=== PATIENT | female | born 1990 ===

== ENCOUNTER 2017-08-30 17:16 | Inpatient (IN) | payer OTHER ==
[~2017-08-30] VITALS: Ht 167.6 cm; Wt 2.3 kg
[~2017-08-30 17:16] MED LIST: TYLENOL-CODEINE1 TAB PO
[2017-08-30] MEDS ORDERED: ZYRTEC10 MG PO (20:18)
[2017-08-30] MEDS ORDERED: IRON325 MG PO (20:19)
[2017-08-30] MEDS ORDERED: PRENATAL TABLE1 EAC1 PO (20:20)
== END 2017-09-02 11:59 | DRG 775 ==
LOC: LDR 17:16 → OB/GYN 08-31 17:14
PROC: 4A1HXCZ Monitoring of Products of Conception, Cardiac Rate, External Approach (ICD-10-PCS; 2017-08-30)
PROC: 10E0XZZ Delivery of Products of Conception, External Approach (ICD-10-PCS; principal; 2017-08-31)
PROC: 0KQM0ZZ Repair Perineum Muscle, Open Approach (ICD-10-PCS; 2017-08-31)
PROC: 10907ZC Drainage of Amniotic Fluid, Therapeutic from Products of Conception, Via Natural or Artificial Opening (ICD-10-PCS; 2017-08-31)
PROC: 4A033R1 Measurement of Arterial Saturation, Peripheral, Percutaneous Approach (ICD-10-PCS; 2017-08-31)
DX: O70.1 Second degree perineal laceration during delivery (principal); Z37.2 Twins, both liveborn; O30.043 Twin pregnancy, dichorionic/diamniotic, third trimester; Z3A.37 37 weeks gestation of pregnancy; O99.013 Anemia complicating pregnancy, third trimester; D64.89 Other specified anemias

== ENCOUNTER 2025-02-20 06:53 | Day surgery (SDC) | payer OTHER ==
[~2025-02-20 06:53] MED LIST changes: +IRON325 MG PO; +PRENATAL TABLE1 EAC1 PO; +ZYRTEC10 MG PO
[2025-02-20 07:38] LABS: INR 1.18; PARTIAL THROMBOPLASTIN TIME 25.2 SECONDS (22.0-34.0); PROTHROMBIN TIME 12.7 SECONDS (9.0-11.5)
[2025-02-20] MEDS ORDERED: CEFOXITIN SODIUM 2,000 MG VIAL IV ONE (10:43)
[2025-02-20] MEDS ORDERED: POVIDONE-IODINE 118 ML BOTT TOP ONE (12:53)
[2025-02-20] MEDS ORDERED: MONDOXYNE NL100 MG PO (13:53)
[2025-02-20] MEDS ORDERED: NAPR500T14 PO (13:53)
[2025-02-20] MEDS ORDERED: PROMETHAZINE HCL 50 MG/ML AMPUL IM ONE (14:00)
[2025-02-20] MEDS ORDERED: MORPHINE SULFATE 4 MG/ML VIAL IV PRN (14:00)
== END 2025-02-20 16:55 | disposition home or self-care (01) ==
LOC: CIR.AMB 06:53
PROVIDERS: ATTEND Obstetrics & Gynecology
DX: D25.0 Submucous leiomyoma of uterus (principal); N84.0 Polyp of corpus uteri; N92.0 Excessive and frequent menstruation with regular cycle